=== PATIENT | male | born 1990 | race Caucasian/White ===

== ENCOUNTER 2019-04-19 09:36 | Emergency (ER) | payer SELFPAY ==
[~2019-04-19] VITALS: Ht 175.3 cm; Wt 65.0 kg
[2019-04-19 10:03] LABS: CLARITY URINE CLEAR (CLEAR); COLOR URINE YELLOW (YELLOW); KETONES URINE 2+ (NEGATIVE); LEUKOCYTE ESTERASE URINE NEGATIVE (NEGATIVE); NITRITE URINE NEGATIVE (NEGATIVE); OCCULT BLOOD URINE NEGATIVE (NEGATIVE); PH URINE 6.5 (4.5-8.0); PROTEIN URINE NEGATIVE (NEGATIVE); UROBILINOGEN URINE 0.2 E.U./dL (0.2-1.0)
[2019-04-19] MEDS ORDERED: LIDOCAINE HCL/PF 1% 10 MG/ML 5ML VIAL IJ ONE (11:30)
[2019-04-19] MEDS ORDERED: AZITHROMYCIN 500 MG TABLET PO ONE (11:30)
[2019-04-19] MEDS ORDERED: CEFTRIAXONE SODIUM 250 MG/VIAL IM ONE (11:30)
[2019-04-19 11:50] VITALS: BP 125/72
== END 2019-04-19 12:14 | disposition home or self-care (01) ==
LOC: EDBD 09:36 → ER 09:36
DX: N34.2 Other urethritis (principal); N48.1 Balanitis; N50.89 Other specified disorders of the male genital organs
CPT/HCPCS: 81003; 96372; 99283; J0696; J3490